=== PATIENT | female | born 1940 | race Caucasian/White ===

== ENCOUNTER → 2022-03-11 | Outpatient (REF) | payer OTHER ==
[2022-03-11 13:30] LABS: ALBUMIN 3.3 GM/DL (3.2-5.2); BILIRUBIN,TOTAL 0.2 MG/DL (0.2-1.0); CALCIUM LEVEL 9.2 MG/DL (8.8-10.2); CREATININE FOR GFR 1.72 MG/DL (0.55-1.30); GLOMERULAR FILTRATION RATE 30.5 (>39); POTASSIUM SERUM 4.7 MEQ/L (3.5-5.1); TOTAL PROTEIN 6.6 GM/DL (6.4-8.2)
== END ==
LOC: M LABWUC 11:44
PROVIDERS: ATTEND Physician Assistant
DX: U07.1 COVID-19 (principal)

== ENCOUNTER 2023-02-25 15:03 | Emergency (ER) | payer MEDICARE, OTHER ==
[2023-02-25] VITALS (9 sets, daily range): BP systolic 181–209; BP diastolic 83–95; TEMP 97.6–98.3; O2SAT 94–96
[~2023-02-25] VITALS: Ht 162.6 cm; Wt 97.9 kg
[2023-02-25] MEDS ORDERED: FAMOTIDINE 20MG/2ML VIAL IVP ONE (15:50)
[2023-02-25] MEDS ORDERED: dexAMETHasone 20MG/5ML VIAL IV ONE (15:50)
[2023-02-25] MEDS ORDERED: diphenhydrAMINE 50MG/ML VIAL IV ONE (15:50)
[2023-02-25 16:00] LABS: BASO # 0.1 10^3/uL (0.0-0.2); BASO % 0.9 % (0.0-1.0); EOS # 0.7 10^3/uL (0.0-0.5); EOS % 7.1 % (0.0-3.0); HEMATOCRIT 28.7 % (36.0-47.0); HEMOGLOBIN 8.6 g/dl (12.0-15.5); LYMPH # 2.2 10^3/uL (1.5-5.0); LYMPH % 23.9 % (24.0-44.0); MEAN CORPUSCULAR HEMOGLOBIN 24.9 pg (27.0-33.0); MEAN CORPUSCULAR VOLUME 82.9 fl (80.0-96.0); MONO # 0.7 10^3/uL (0.0-0.8); MONO % 7.8 % (2.0-8.0); NEUTROPHILS # 5.6 10^3/uL (1.5-8.5); PLATELET COUNT, AUTOMATED 229 10^3/uL (150-450); RED BLOOD COUNT 3.46 10^6/uL (4.00-5.40); WHITE BLOOD COUNT 9.3 10^3/uL (4.0-10.0)
[2023-02-25 16:37] LABS: CALCIUM LEVEL 9.1 MG/DL (8.3-10.6); CREATININE FOR GFR 1.47 MG/DL (0.55-1.30); GLOMERULAR FILTRATION RATE 36.4 (>32)
[2023-02-25] MEDS ORDERED: NS 1,000 ML IV SCH (18:25)
[2023-02-25] MEDS ORDERED: hydrALAZINE 20MG/ML 1ML VIAL IV ONE (23:35)
[2023-02-25] MEDS ORDERED: LEVO150T7 PO (23:41)
[2023-02-25] MEDS ORDERED: AMLO1TAB24 PO (23:41)
[2023-02-25] MEDS ORDERED: LISI10TA22 PO (23:41)
[2023-02-25] MEDS ORDERED: ATOR40TA75 PO (23:41)
[2023-02-25] MEDS ORDERED: TARTCAP PO (23:41)
[2023-02-25] MEDS ORDERED: ADV250INH INH (23:41)
[2023-02-25] MEDS ORDERED: FURO20TA2 PO (23:41)
[2023-02-25] MEDS ORDERED: MONT10TA97 PO (23:41)
[2023-02-25] MEDS ORDERED: GLIP5TAB PO (23:41)
[2023-02-25] MEDS ORDERED: FLUO20CA22 PO (23:41)
[2023-02-25] MEDS ORDERED: FOLI400T13 PO (23:42)
[2023-02-26] MEDS ORDERED: GABAPENTIN 300 MG CAP PO ONE (01:45)
[2023-02-26] MEDS ORDERED: amLODIPine 5 MG TAB PO ONE (01:45)
[2023-02-26] MEDS ORDERED: NEUR300C PO (01:46)
[2023-02-26] MEDS ORDERED: ATEN25TA PO (01:46)
[2023-02-26 01:56] VITALS: BP 207/95
[2023-02-26 02:00] VITALS: BP 202/86; O2SAT 96
== END 2023-02-26 02:24 | disposition home or self-care (01) ==
LOC: M ED 15:03
DX: T46.4X5A Adverse effect of angiotensin-converting-enzyme inhibitors, initial encounter (principal); G60.9 Hereditary and idiopathic neuropathy, unspecified; Z79.899 Other long term (current) drug therapy
CPT/HCPCS: 36430; 80048; 85025; 86850; 86900; 86901; 86927; 96374; 96375; 99285; J0360; J1100; J1200

== ENCOUNTER → 2023-03-14 | Outpatient (CLI) | payer MEDICARE ==
[~2023-03-14] MED LIST: ADV250INH INH; AMLO1TAB24 PO; ATEN25TA PO; ATOR40TA75 PO; FLUO20CA22 PO; FOLI400T13 PO; FURO20TA2 PO; GLIP5TAB PO; LEVO150T7 PO; LISI10TA22 PO; MONT10TA97 PO; NEUR300C PO; TARTCAP PO
== END ==
LOC: M WUC 11:04
PROVIDERS: ATTEND Student in an Organized Health Care Education/Training Program
DX: R06.02 Shortness of breath (principal)